=== PATIENT | female | born 1980 | race Caucasian/White ===

== ENCOUNTER 2016-07-17 22:00 | Emergency (ER) | payer SELFPAY ==
[2016-07-17] MEDS ORDERED: KETOROLAC 30 MG/ML VIAL ONE (23:25)
[2016-07-17] MEDS ORDERED: SODIUM CHLORIDE 0.9% 1,000 ML ONE (23:25)
== END 2016-07-18 01:10 | disposition home or self-care (01) ==
LOC: ER 22:00
CPT/HCPCS: 74176; 96361; 96374